=== PATIENT | male | born 1960 | race American Indian/Alaskan Native ===

== ENCOUNTER 2016-06-23 13:54 | Inpatient (IN) | payer OTHER ==
[2016-06-23] MEDS ORDERED: VITAMIN B-1 100 MG, FOLVITE 1 MG, INFUVITE 10 ML in NACL 0.9% 1000 ML 1,000 ML IV ONE (14:40)
[2016-06-23] MEDS ORDERED: NORMODYNE IV ONE (14:40)
[2016-06-23 14:55] LABS: Basophils % (Auto) 0.3 % (0.0-1.8); Eosinophils % (Auto) 0.1 % (0.0-4.3); Hematocrit 44.6 % (35.5-45.6); Hemoglobin 14.7 gm/dl (11.8-15.2); Mean Corpuscular HGB Conc 33 % (32-34); Mean Corpuscular Hemoglobin 30 pg (28-32); Mean Corpuscular Volume 90 fl (84-94); Red Blood Count 4.98 M/mm3 (3.65-5.03); Red Cell Distribution Width 16.3 % (13.2-15.2); White Blood Count 3.7 K/mm3 (4.5-11.0)
[2016-06-23] MEDS ORDERED: ATIVAN IV ONE (15:03)
[2016-06-23] MEDS ORDERED: KEPPRA 1,000 MG/NS 0.75% 100ML 1,000 MG/100 ML BAG IV ONE (15:04)
[2016-06-23 15:06] LABS: Anion Gap 32 mmol/L; BUN/Creatinine Ratio 8.75; Blood Urea Nitrogen 7 mg/dL (9-20); Calcium 8.7 mg/dL (8.4-10.2); Carbon Dioxide 18 mmol/L (22-30); Chloride 90.3 mmol/L (98-107); Glucose 88 mg/dL (75-100); Sodium 137 mmol/L (137-145)
[2016-06-23 15:08] LABS: Potassium 2.9 mmol/L (3.6-5.0)
[2016-06-23 15:17] LABS: Creatine Kinase MB 6.9 ng/mL (0.0-4.0)
[2016-06-23 15:19] LABS: Albumin 4.6 g/dL (3.9-5); Albumin/Globulin Ratio 1.4 %; Bilirubin,Direct 0.3 mg/dL (0-0.2); Bilirubin,Indirect 0.7 mg/dL; Magnesium 1.5 mg/dL (1.7-2.3); Total Protein 7.8 g/dL (6.3-8.2)
[2016-06-23 15:33] LABS: INR 0.98 (0.87-1.13)
[2016-06-23 15:34] LABS: Partial Thromboplastin Time 25.2 Sec. (24.2-36.6)
[2016-06-23 15:46] LABS: Platelet Count 72 K/mm3 (140-440)
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
[2016-06-23] MEDS ORDERED: K-DUR PO ONE (16:06)
[2016-06-23] MEDS ORDERED: MAGNESIUM SULFATE 2GM/50ML 2 GM/50 ML BAG IV ONE (16:06)
[2016-06-23 16:22] LABS: Urine Drugs of Abuse Note Disclamer
[2016-06-23] MEDS ORDERED: PROTONIX IV ONE (16:35)
[2016-06-23 16:41] LABS: Bilirubin,Urine NEG (Negative); Blood,Urine SM (Negative); Ketones,Urine 80 mg/dL (Negative); Leukocyte Esterase,Urine NEG (Negative); Mucus,Urine FEW /HPF; Nitrite,Urine NEG (Negative); Urobilinogen,Urine < 2.0 mg/dL (<2.0)
--- NOTE | 2016-06-23 16:41 | Cat Scan Report ---
FINAL REPORT PROCEDURE: CT HEAD/BRAIN WO CON TECHNIQUE: Computerized tomography of the head was performed without contrast material. HISTORY: syncope/sz/htn COMPARISON: No prior studies are available for comparison. FINDINGS: Visualized portions of the paranasal sinuses and mastoid air cells are clear. No calvarial fracture is seen. Idiopathic calcifications are seen in the basal ganglia. No CVA is seen. No acute intracranial hemorrhage or mass effect is seen. IMPRESSION: No significant abnormality is seen.
[2016-06-23 16:48] LABS: Protein,Urine >500 mg/dL (Negative)
--- NOTE | 2016-06-23 16:50 | XRay Report ---
FINAL REPORT PROCEDURE: XR CHEST 1V AP TECHNIQUE: Chest radiograph anteroposterior view. CPT 39728 HISTORY: hypertension COMPARISON: No prior studies are available for comparison. FINDINGS: Heart: Normal. Mediastinum/Vessels: Normal. Lungs/Pleural space: Normal. Bony thorax: No acute osseous abnormality. Life support devices: None. IMPRESSION: No acute cardiopulmonary abnormality.
[2016-06-23] MEDS ORDERED: HALDOL IV PRN (18:36)
[2016-06-23] MEDS ORDERED: ATIVAN IV PRN (18:37)
[2016-06-23] MEDS ORDERED: NORMODYNE IV PRN (18:38)
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
[2016-06-23] MEDS ORDERED: CEPHULAC PO ONE ×2 (19:00→22:00)
[2016-06-23] MEDS: MAG-OX PO SCH (21:40)
--- NOTE | 2016-06-24 00:21 | Admit Criteria Form ---
Admission Criteria Documentation: SYNCOPE Clinical Indications for Admission to Inpatient Care ( Place 'X' for any and all applicable criteria): Admission is indicated for syncope and ANY ONE of the following (1)(2)(3)(4)(5) (6)(7) : [ X]I. Inpatient admission required rather than observation care (Also use Syncope: Observation Care Criteria as appropriate) because of ANY ONE of the following: [ ]a) Hemodynamic instability that is severe or persistent [ ]b) Cardiac arrhythmias of immediate concern identified or strongly suspected (eg, needs electrophysiologic study) [ ]c) Acute coronary syndrome identified (Also use Myocardial Infarction or Angina Criteria form ) [ ]d) Structural cardiac disorder (eg, aortic stenosis) suspected as cause that requires immediate correction [ ]e) Respiratory symptoms (eg, dyspnea, tachypnea) that are severe or persistent [ X]f) Neurologic signs or symptoms that are severe or persistent ( eg, stroke, seizures, altered mental status) [ ]g) Severe electrolyte abnormalities requiring inpatient care [ ]h) Supplemental oxygen or respiratory treatment for over 24 hrs that are performable only in acute inpatient setting [ ]i) IV fluid to replace significant ongoing (eg, for over 24 hrs ) losses (>3 L/m2 per day) [ ]j) Continuous intravenous infusion of anticoagulation, platelet inhibitor, vasoactive, or antiarrhythmic medication(15)(16) [ ]k) Pulmonary artery catheter monitoring [ ]l) Temporary pacemaker placement(17) [ ]m) Emergent cardioversion(18) [ X]n) Other conditions, treatment or monitoring requiring inpatient admission [ ]II. Suspicion of imminently dangerous cause (eg, rare causes like pericardial tamponade, pulmonary embolism) [ ]III. Syncope causing severe injury requiring hospitalization Extended stay beyond goal length of stay may be needed for(28) [ ]a) Dangerous arrhythmia(15)(23)(27)(29) [ ]b) Myocardial ischemia [ ]c) Seizure disorder [ ]d) Syncope-related injuries The original [employer] content created by [employer] has been revised. The portions of the content which have been revised are identified through the use of italic text or in bold, and [facility] [employer] has neither reviewed nor approved the modified material. All other unmodified content is copyright [facility] [employer]. Please see references footnoted in the original [facility] edition 2016 Admission Criteria Met: Yes
[2016-06-24 07:19] LABS: Hematocrit 39.4 % (35.5-45.6); Mean Corpuscular HGB Conc 33 % (32-34); Mean Corpuscular Hemoglobin 29 pg (28-32); Mean Corpuscular Volume 89 fl (84-94); Red Blood Count 4.43 M/mm3 (3.65-5.03); Red Cell Distribution Width 16.2 % (13.2-15.2)
[2016-06-24 07:29] LABS: Platelet Count 69 K/mm3 (140-440)
[2016-06-24 08:00] LABS: Alanine Aminotransferase 36 units/L (7-56); Albumin/Globulin Ratio 1.4 %; Alkaline Phosphatase 70 units/L (35-129); Anion Gap 23 mmol/L; BUN/Creatinine Ratio 8.57; Bilirubin,Total 0.8 mg/dL (0.1-1.2); Blood Urea Nitrogen 6 mg/dL (9-20); Calcium 8.3 mg/dL (8.4-10.2); Carbon Dioxide 21 mmol/L (22-30); Chloride 95.5 mmol/L (98-107); Glucose 97 mg/dL (75-100); Magnesium 1.9 mg/dL (1.7-2.3); Sodium 137 mmol/L (137-145); Total Protein 6.9 g/dL (6.3-8.2)
[2016-06-24 08:02] LABS: Potassium 2.9 mmol/L (3.6-5.0)
[2016-06-24] MEDS ORDERED: D5NS 1,000 ML IV SCH (09:00)
[2016-06-24] MEDS: FOLVITE PO SCH (09:07)
[2016-06-24] MEDS: VITAMIN B-1 PO SCH (09:07)
[2016-06-24] MEDS: MAG-OX PO SCH (09:07)
[2016-06-24] MEDS: K-DUR PO SCH ×4 (09:07→21:46)
--- NOTE | 2016-06-24 09:58 | Progress Note ---
Assessment and Plan Assessment and plan: Alcohol withdrawal seizures. He has not had any more seizures since admitted. Continue Keppra for now. may not need Keppra on discharge. He states his last drink was 5 days ago. Tremors improved. Alcohol withdrawal syndrome. Continue CIWA protocol. Neuro checks. Continue thiamine, folic acid. Hypertension. Blood pressure uncontrolled. Start atenolol 25 mg daily. DVT prophylaxis SCDs only. Not on anticoagulation because of thrombocytopenia. Thrombocytopenia probably secondary to alcohol use. Repeat CBC Full CODE STATUS. History Interval history: Patient with alcohol withdrawal seizure, No more seizures since admitted, Less tremors Hospitalist Physical - Physical exam Narrative exam: Gen appearance: not in acute distress, HEENT: Normocephalic, atraumatic Neck : supple, no JVD Lungs: Lungs clear to auscultation bilaterally, no crackles or wheeze. Heart : S1 and S2 regular, no murmurs rubs or gallop, Abdomen: soft, non-tender, non-distended, normal bowel sounds Extremities: No edema clubbing or cyanosis, Neuro :awake alert, oriented 3, no focal neurologic signs, mild tremors Psych:calm, appropriate mood Skin: no rashes - Constitutional Vitals: Temp Pulse Resp BP Pulse Ox 98.3 F 90 18 160/96 98 06/24/16 08:00 06/24/16 08:00 06/24/16 08:00 06/24/16 08:00 06/24/16 09:36 Results - Labs CBC & Chem 7: 06/24/16 06:54 06/24/16 06:54 Labs: Laboratory Last Values WBC 3.0 K/mm3 (4.5-11.0) L 06/24/16 06:54 RBC 4.43 M/mm3 (3.65-5.03) 06/24/16 06:54 Hgb 13.0 gm/dl (11.8-15.2) 06/24/16 06:54 Hct 39.4 % (35.5-45.6) 06/24/16 06:54 MCV 89 fl (84-94) 06/24/16 06:54 MCH 29 pg (28-32) 06/24/16 06:54 MCHC 33 % (32-34) 06/24/16 06:54 RDW 16.2 % (13.2-15.2) H 06/24/16 06:54 Plt Count 69 K/mm3 (140-440) L 06/24/16 06:54 Lymph % (Auto) 12.9 % (13.4-35.0) L 06/23/16 14:32 [place] % (Auto) 9.9 % (0.0-7.3) H 06/23/16 14:32 Eos % (Auto) 0.1 % (0.0-4.3) 06/23/16 14:32 Baso % (Auto) 0.3 % (0.0-1.8) 06/23/16 14:32 Lymph # 0.5 K/mm3 (1.2-5.4) L 06/23/16 14:32 [place] # 0.4 K/mm3 (0.0-0.8) 06/23/16 14:32 Eos # 0.0 K/mm3 (0.0-0.4) 06/23/16 14:32 Baso # 0.0 K/mm3 (0.0-0.1) 06/23/16 14:32 Seg Neutrophils % 76.8 % (40.0-70.0) H 06/23/16 14:32 Seg Neutrophils # 2.8 K/mm3 (1.8-7.7) 06/23/16 14:32 PT 12.9 Sec. (12.2-14.9) 06/23/16 14:46 INR 0.98 (0.87-1.13) 06/23/16 14:46 APTT 25.2 Sec. (24.2-36.6) 06/23/16 14:46 Sodium 137 mmol/L (137-145) 06/24/16 06:54 Potassium 2.9 mmol/L (3.6-5.0) L* 06/24/16 06:54 Chloride 95.5 mmol/L (98-107) L 06/24/16 06:54 Carbon Dioxide 21 mmol/L (22-30) L 06/24/16 06:54 Anion Gap 23 mmol/L 06/24/16 06:54 BUN 6 mg/dL (9-20) L 06/24/16 06:54 Creatinine 0.7 mg/dL (0.8-1.5) L 06/24/16 06:54 Estimated GFR > 60 ml/min 06/24/16 06:54 BUN/Creatinine Ratio 8.57 % 06/24/16 06:54 Glucose 97 mg/dL (75-100) 06/24/16 06:54 Calcium 8.3 mg/dL (8.4-10.2) L 06/24/16 06:54 Magnesium 1.9 mg/dL (1.7-2.3) 06/24/16 06:54 Total Bilirubin 0.8 mg/dL (0.1-1.2) 06/24/16 06:54 Direct Bilirubin 0.3 mg/dL (0-0.2) H 06/23/16 14:39 Indirect Bilirubin 0.7 mg/dL 06/23/16 14:39 AST 57 units/L (5-40) H 06/24/16 06:54 ALT 36 units/L (7-56) 06/24/16 06:54 Alkaline Phosphatase 70 units/L (35-129) 06/24/16 06:54 Ammonia 60.0 umol/L (25-60) 06/24/16 06:54 Total Creatine Kinase 850 units/L (55-170) H 06/23/16 14:40 CK-MB (CK-2) 6.9 ng/mL (0.0-4.0) H 06/23/16 14:40 CK-MB (CK-2) Rel Index 0.8 (0-4) 06/23/16 14:40 Troponin T < 0.010 ng/mL (0.00-0.029) 06/23/16 23:05 NT-Pro-B Natriuret Pep 823.9 pg/mL (0-900) 06/23/16 14:39 Total Protein 6.9 g/dL (6.3-8.2) 06/24/16 06:54 Albumin 4.0 g/dL (3.9-5) 06/24/16 06:54 Albumin/Globulin Ratio 1.4 % 06/24/16 06:54 TSH 2.560 mlU/mL (0.270-4.200) 06/23/16 15:14 Urine Color Yellow (Yellow) 06/23/16 16:10 Urine Turbidity Clear (Clear) 06/23/16 16:10 Urine pH 6.0 (5.0-7.0) 06/23/16 16:10 Ur Specific [place] 1.020 (1.003-1.030) 06/23/16 16:10 Urine Protein >500 mg/dL (Negative) 06/23/16 16:10 Urine Glucose (UA) Neg mg/dL (Negative) 06/23/16 16:10 Urine Ketones 80 mg/dL (Negative) 06/23/16 16:10 Urine Blood Sm (Negative) 06/23/16 16:10 Urine Nitrite Neg (Negative) 06/23/16 16:10 Urine Bilirubin Neg (Negative) 06/23/16 16:10 Urine Urobilinogen < 2.0 mg/dL (<2.0) 06/23/16 16:10 Ur Leukocyte Esterase Neg (Negative) 06/23/16 16:10 Urine WBC (Auto) 1.0 /HPF (0.0-6.0) 06/23/16 16:10 Urine RBC (Auto) 2.0 /HPF (0.0-6.0) 06/23/16 16:10 Hyaline Casts 1 /LPF 06/23/16 16:10 Urine Mucus Few /HPF 06/23/16 16:10 Urine Opiates Screen Presumptive negative 06/23/16 16:10 Urine Methadone Screen Presumptive negative 06/23/16 16:10 Ur Barbiturates Screen Presumptive negative 06/23/16 16:10 Ur Phencyclidine Scrn Presumptive negative 06/23/16 16:10 Ur Amphetamines Screen Presumptive negative 06/23/16 16:10 U Benzodiazepines Scrn Presumptive negative 06/23/16 16:10 Urine Cocaine Screen Presumptive negative 06/23/16 16:10 U Marijuana (THC) Screen Presumptive negative 06/23/16 16:10 Drugs of Abuse Note Disclamer 06/23/16 16:10 Plasma/Serum Alcohol < 0.01 gm% (0-0.07) 06/23/16 15:14
[2016-06-24] MEDS ORDERED: PNEUMOVAX 23 IM ONE (12:00)
[2016-06-24] MEDS ORDERED: FLUARIX QUAD 2016-2017(36 MOS+) IM ONE (12:00)
[2016-06-24] MEDS: KCL 10MEQ/100ML 10 MEQ/100 ML BAG IV SCH ×2 (12:31→14:27)
[2016-06-24] MEDS: TENORMIN PO SCH (15:43)
[2016-06-24 20:36] LABS: Blood Urea Nitrogen 7 mg/dL (9-20); Calcium 8.4 mg/dL (8.4-10.2); Carbon Dioxide 21 mmol/L (22-30); Chloride 98.4 mmol/L (98-107); Glucose 112 mg/dL (75-100); Potassium 3.7 mmol/L (3.6-5.0); Sodium 137 mmol/L (137-145)
[2016-06-24 20:54] LABS: Anion Gap 21 mmol/L
[2016-06-25 07:11] LABS: Hematocrit 39.6 % (35.5-45.6); Hemoglobin 13.1 gm/dl (11.8-15.2); Mean Corpuscular HGB Conc 33 % (32-34); Mean Corpuscular Hemoglobin 29 pg (28-32); Mean Corpuscular Volume 89 fl (84-94); Red Blood Count 4.45 M/mm3 (3.65-5.03); Red Cell Distribution Width 16.6 % (13.2-15.2); White Blood Count 2.8 K/mm3 (4.5-11.0)
[2016-06-25 07:12] LABS: Platelet Count 66 K/mm3 (140-440)
[2016-06-25 07:29] LABS: Anion Gap 19 mmol/L; BUN/Creatinine Ratio 8.33; Blood Urea Nitrogen 5 mg/dL (9-20); Calcium 8.2 mg/dL (8.4-10.2); Carbon Dioxide 22 mmol/L (22-30); Chloride 100.3 mmol/L (98-107); Creatine Kinase 615 units/L (55-170); Glucose 124 mg/dL (75-100); Potassium 3.4 mmol/L (3.6-5.0); Sodium 138 mmol/L (137-145)
[2016-06-25] MEDS ORDERED: K-DUR PO ONE (08:30)
--- NOTE | 2016-06-25 09:37 | Discharge Summary ---
Providers - Providers Date of Admission: 06/23/16 16:54 Date of discharge: 06/25/16 Attending physician: UJNE DIEGO Primary care physician: IFTIKHAR SINGH MD Hospitalization Condition: Stable Disposition: DISCHARGED TO HOME OR SELFCARE - Discharge Diagnoses (1) Alcohol withdrawal seizure Status: Acute Qualifiers: Complication of substance-induced condition: C (2) Alcohol withdrawal syndrome Status: Acute Qualifiers: Complication of substance-induced condition: C (3) Alcohol withdrawal Status: Acute Qualifiers: Complication of substance-induced condition: with unspecified complication Qualified Code(s): F10.239 - Alcohol dependence with withdrawal, unspecified (4) HTN (hypertension) Status: Acute Qualifiers: Hypertension type: H (5) Hypokalemia Status: Acute (6) Hypokalemia Status: Acute Core Measure Documentation - Palliative Care Palliative Care/ Comfort Measures: Not Applicable - Core Measures Any of the following diagnoses?: none Exam - Constitutional Vitals: Temp Pulse Resp BP Pulse Ox 98.8 F 76 20 137/89 99 06/25/16 08:10 06/25/16 08:10 06/25/16 08:10 06/25/16 08:10 06/25/16 08:10 Plan Activity: no driving until cleared by PCP Diet: low fat, low cholesterol, low salt Additional Instructions: 1. Follow up with PCP or [facility] in 1 week. 2.No driving until cleared by physician, because of seizure episode. Follow up with: PRIMARY CARE, [Primary Care Provider] - 3-5 Days Prescriptions: Atenolol [Tenormin] 50 mg PO DAILY #30 tab Folic Acid [Folvite] 1 mg PO QDAY #30 tablet Thiamine [Vitamin B-1] 100 mg PO QDAY #30 tablet
[2016-06-25] MEDS: TENORMIN PO SCH (10:23)
[2016-06-25 10:24] VITALS: BP 130/78
[2016-06-25] MEDS: FOLVITE PO SCH (10:24)
[2016-06-25] MEDS: MAG-OX PO SCH (10:24)
[2016-06-25] MEDS: VITAMIN B-1 PO SCH (10:24)
== END 2016-06-25 15:40 | disposition home or self-care (01) | DRG 897 ==
LOC: ED 13:54 → 3A 16:54
PROVIDERS: ADMIT Internal Medicine; ATTEND Internal Medicine
DX: F10.239 Alcohol dependence with withdrawal, unspecified (principal); E72.20 Disorder of urea cycle metabolism, unspecified; E87.6 Hypokalemia; E83.42 Hypomagnesemia; I10 Essential (primary) hypertension; D69.6 Thrombocytopenia, unspecified; Z80.1 Family history of malignant neoplasm of trachea, bronchus and lung; Z98.890 Other specified postprocedural states
CPT/HCPCS: 36415; 70450; 71010; 80048; 80053; 80074; 80307; 80320; 81001; 82140; 82550; 82553; 83735; 83880; 84443; 84484; 85025; 85027; 85610; 85730; 90686; 90732; 93005; 93010; 96374; 96375; C9113; G0480; J1953; J2060; J3411; J3475; J3480; J7030; J7042